=== PATIENT | female | born 2000 | race Asian ===

== ENCOUNTER 2019-02-09 07:31 | Emergency (ER) | payer OTHER ==
[~2019-02-09] VITALS: Ht 165.1 cm; Wt 77.1 kg
--- NOTE | 2019-02-09 07:38 | NUR ---
Placed in room 3 . Placed on automatic clipper, blood pressure machine and pulse oximeter. To gown for exam. Side rails up.
--- NOTE | 2019-02-09 07:40 | NUR ---
Note natalie in ED - 02/09/19 at 0754 by SDEDDW Patient to ER bed 3 to gown for evaluation. Side rails up.
[2019-02-09 07:41] VITALS: BP_SYST 128
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
--- NOTE | 2019-02-09 07:50 | NUR ---
CINDI Benoit at bedside examining patient.
[2019-02-09] MEDS ORDERED: IBUPROFEN 600 MG TABLET PO ONE (08:00)
--- NOTE | 2019-02-09 08:00 | NUR ---
HCG done, results are negative.
--- NOTE | 2019-02-09 08:04 | NUR ---
Patient transported to radiology via gurney, accompanied by staff.
--- NOTE | 2019-02-09 08:05 | NUR ---
Ibuprofen administered for headache
--- NOTE | 2019-02-09 08:15 | NUR ---
pt returned from CT scan.
[2019-02-09] MEDS ORDERED: LORazepam 1 MG TABLET PO ONE (08:45)
[2019-02-09 08:50] LABS: BARBITURATE, URINE NEGATIVE (NEG <=200); BENZODIAZEPINE, URINE NEGATIVE (NEG <=150); CANNABINOID, URINE NEGATIVE (NEG <=50); COCAINE, URINE NEGATIVE (NEG <=150); METHAMPHETAMINES SCREEN,URINE NEGATIVE (NEG <=500); OPIATE, URINE NEGATIVE (NEG <=100); PHENCYCLIDINE SCREEN,URINE NEGATIVE (NEG <=25); UR TRICYCLIC ANTIDEPRESSANTS NEGATIVE (NEG <=300); URINE AMPHETAMINE NEGATIVE (NEG <=500); URINE METHADONE NEGATIVE (NEG <=200); URINE OXYCODONE SCREEN NEGATIVE (NEG <=100); URINE PROPOXYPHENE SCREEN NEGATIVE (NEG <=300)
[2019-02-09 09:15] VITALS: BP_SYST 128
--- NOTE | 2019-02-09 09:18 | NUR ---
Patient given written and verbal discharge instructions and verbalizes understanding. ER MD discussed with patient the results and treatment provided. Patient in stable condition. ID arm band removed. Patient educated on pain management and to follow up with PMD. Pain Scale 0/10. Opportunity for questions provided and answered. Medication side effect fact sheet provided.
== END 2019-02-09 09:15 | disposition home or self-care (01) ==
LOC: SED 07:31
DX: R51 Headache (principal); F41.9 Anxiety disorder, unspecified; V49.9XXA Car occupant (driver) (passenger) injured in unspecified traffic accident, initial encounter; Y92.413 State road as the place of occurrence of the external cause; Y93.89 Activity, other specified; Y99.8 Other external cause status
CPT/HCPCS: 70450-TC; 80307; 99284